=== PATIENT | male | born 1970 | race American Indian/Alaskan Native ===

== ENCOUNTER 2020-03-08 14:48 | Emergency (ER) | payer MEDICAID ==
[~2020-03-08] VITALS: Ht 177.8 cm; Wt 77.0 kg
[2020-03-08] MEDS ORDERED: TETanus/Pertussis (Acell)/Diphther VAC/PF (Tdap-Adult) 0.5ml syringe IMVAC ONE (16:50)
[2020-03-08] MEDS ORDERED: cephalexin 500mg capsule PO ONE (16:55)
[2020-03-08] MEDS ORDERED: sulfamethoxazole/trimethoprim DS (800/160mg) tablet PO ONE (16:55)
[2020-03-08] MEDS ORDERED: ketorolac trometh. 30mg/ml inj. IM ONE (16:55)
[2020-03-08] MEDS ORDERED: CEPH500C5 PO (16:56)
[2020-03-08] MEDS ORDERED: SULF1TAB49 PO (16:56)
[2020-03-08] MEDS ORDERED: LACT1CAP65 PO (16:56)
[2020-03-08 17:42] VITALS: BP 138/95
== END 2020-03-08 17:40 | disposition home or self-care (01) ==
LOC: ER 14:49
DX: L02.415 Cutaneous abscess of right lower limb (principal); F17.200 Nicotine dependence, unspecified, uncomplicated; Z79.2 Long term (current) use of antibiotics; Z79.899 Other long term (current) drug therapy
CPT/HCPCS: 90471; 90715; 96372; 99284; J1885

== ENCOUNTER 2020-05-31 17:03 | Emergency (ER) | payer MEDICAID ==
[~2020-05-31] VITALS: Ht 177.8 cm; Wt 72.7 kg
[~2020-05-31 17:03] MED LIST: LACT1CAP65 PO
[2020-05-31 17:31] VITALS: BP 144/83
== END 2020-05-31 18:20 | disposition home or self-care (01) ==
LOC: ER 17:04
DX: Z13.89 Encounter for screening for other disorder (principal)
CPT/HCPCS: 99281

== ENCOUNTER 2022-03-12 00:35 | Emergency (ER) | payer MEDICAID ==
[~2022-03-12] VITALS: Ht 180.3 cm; Wt 75.0 kg
[2022-03-12 00:43] VITALS: BP 127/80
[2022-03-12] MEDS ORDERED: TETanus/Pertussis (Acell)/Diphther VAC/PF (Tdap-Adult) 0.5ml syringe IMVAC ONE (00:50)
[2022-03-12] MEDS ORDERED: bacitracin 15gm ointment TP ONE (00:50)
[2022-03-12] MEDS ORDERED: ondansetron 4mg rapidly disintigrating tab PO ONE (00:55)
[2022-03-12] MEDS ORDERED: amox tr/potassium clavulanate 500mg/125mg TAB PO ONE (00:55)
[2022-03-12] MEDS ORDERED: AMOX-115 PO (00:59)
== END 2022-03-12 02:59 ==
LOC: ER 00:36
DX: S30.811A Abrasion of abdominal wall, initial encounter (principal); Z72.89 Other problems related to lifestyle; Z79.2 Long term (current) use of antibiotics; Z79.899 Other long term (current) drug therapy; W54.0XXA Bitten by dog, initial encounter; Y93.89 Activity, other specified; Y92.89 Other specified places as the place of occurrence of the external cause; Y99.8 Other external cause status
CPT/HCPCS: 73090; 90471; 90715; 99284

== ENCOUNTER 2024-03-27 07:54 | Emergency (ER) | payer MEDICAID ==
[~2024-03-27] VITALS: Ht 177.8 cm; Wt 93.2 kg
[2024-03-27] MEDS ORDERED: LIDO700A32 TOP (10:06)
[2024-03-27] MEDS ORDERED: CYCL-1 PO (10:06)
[2024-03-27] MEDS: dexamethasone sod phosphate 10mg/ml inj IM STA (10:30)
[2024-03-27] MEDS: ondansetron 4mg rapidly disintigrating tab PO ONE (10:30)
[2024-03-27] MEDS: cyclobenzaprine 10mg tablet PO ONE (10:30)
[2024-03-27] MEDS: ketorolac trometh 30MG/ML vial 30 MG/ML VIAL IM ONE (10:30)
[2024-03-27] MEDS: HYDROcodone/acetaminophen 5mg/325mg tablet PO ONE (10:30)
[2024-03-27 11:19] VITALS: BP 134/76; PULSE 80; RESP 16; TEMP 98.9; O2SAT 99
[2024-03-28] MEDS ORDERED: LIDOcaine 5% patch TP SCH (08:00)
== END 2024-03-27 11:21 | disposition home or self-care (01) ==
LOC: ER 07:54
DX: S33.5XXA Sprain of ligaments of lumbar spine, initial encounter (principal); M54.41 Lumbago with sciatica, right side; Z79.899 Other long term (current) drug therapy; Z72.89 Other problems related to lifestyle; X58.XXXA Exposure to other specified factors, initial encounter; Y93.89 Activity, other specified; Y92.89 Other specified places as the place of occurrence of the external cause; Y99.8 Other external cause status
CPT/HCPCS: 72100; 96372; 99284; J1100; J1885